=== PATIENT | male | born 1975 | race Caucasian/White ===

== ENCOUNTER 2019-10-09 08:41 | Day surgery (SDC) | payer BC ==
[~2019-10-09 08:41] MED LIST: Bupivacaine 0.5% 50 ML MDV ONE
[2019-10-09] MEDS ORDERED: Nozin Nasal Sanitizer NASBOTH ONE (09:00)
[2019-10-09] MEDS ORDERED: Lactated Ringers 1,000 ML IV SCH (09:00)
[2019-10-09] MEDS ORDERED: ceFAZolin 2 GM in Sodium Chloride 0.9% 50 ML IV ONE (09:00)
[2019-10-09 09:07] VITALS: PULSE 71
[2019-10-09] MEDS ORDERED: Midazolam 1 MG/ML 2 ML SDV ONE ×2 (10:00→10:22)
[2019-10-09] MEDS ORDERED: Propofol 200 MG/20 ML SDV ONE ×2 (10:00→11:10)
[2019-10-09] MEDS ORDERED: fentaNYL 100 MCG/2 ML SDV ONE (10:00)
[2019-10-09] MEDS ORDERED: Lactated Ringers 1,000 ML ONE (10:33)
[2019-10-09 13:22] VITALS: BP 132/77
--- NOTE | 2019-10-17 08:25 | OR ---
DATE OF PROCEDURE: 10/09/2019 SURGEON: Carmelo Gonzalez MD PREOPERATIVE DIAGNOSIS: Anterior impingement syndrome, right ankle, possible loose body. POSTOPERATIVE DIAGNOSES: 1. Anterior impingement syndrome, right ankle. 2. Loose body, right ankle. PROCEDURE PERFORMED: Arthroscopy of right ankle with synovectomy, excision of anterior distal tibial osteophyte and removal of loose body, medial gutter. ANESTHESIA: General. INDICATIONS: Thomas is a 44-year-old gentleman who has been having persistent and increasing difficulty with his right ankle over the past year. Having increasing difficulty maintaining his activity level, particularly with basketball. Intermittent sharp stabbing pain, as well as achy pain with activity. X-ray and MRI reveal osteophytes along the distal tibial anterior lip. Also small osteophyte on the talar neck. There is a questionable loose body in the anterior synovium. He now presents for arthroscopy of the right ankle for debridement of the osteophytes and synovitis as well as removal of loose body if necessary. Risks, benefits, potential complications of the procedure were discussed. PROCEDURE IN DETAIL: After adequate anesthesia was obtained, patient was placed supine with a tourniquet about the right upper thigh. Right leg was prepped and draped in a sterile fashion. Leg was exsanguinated and tourniquet inflated to 300 mmHg. A traction device was secured to the operating table and a foot sling was placed around the heel and dorsum of the midfoot. Slight traction was applied. The ankle was infiltrated with an 18- gauge spinal needle with approximately 15 mL. The anterolateral portal was initially established. The scope was introduced and this showed a fairly significant amount of synovitis along the anterior joint and impinging within the joint. Junction of the distal tibia and fibula showed no significant abnormalities. The lateral gutter was clear. Spinal needle was used to confirm position of the anteromedial portal. Shaver was introduced and synovium was debrided allowing better visualization of the anterior joint. Osteophyte was identified along the entire anterior lip with a small area along the extreme anterior portion which was almost fragmented free. Synovium was cleared from around the edges of the osteophyte and a kacie was then utilized to shave this back to the level of the [place] joint line. Evaluation of the talar dome showed some mild thinning in one aspect without significant loss of articular cartilage. Distal tibial likewise showed no areas of full-thickness cartilage loss. Viewing into the medial gutter, a fragment was identified along the anterior edge of the medial malleolus. This was attached to the soft tissue by a stalk but was otherwise free. This was loosened with a shaver and then removed, first debulking it with a kacie, and then removing the remaining fragment with a grasper. The remainder of the medial gutter was free of loose bodies or other abnormalities. Area along the talar neck was inspected with no obvious abnormalities. Traction was released and showed concentric joint. The foot was taken through range of motion including plantar flexion and extreme dorsiflexion with no evidence of bony impingement. Ankle was drained and scope was withdrawn. Ports were then closed with 3-0 nylon in interrupted fashion and a sterile dressing was applied. The port sites and ankle were infiltrated with 0.25% Marcaine prior to application of the dressing. The patient tolerated procedure very well. There were no complications, taken from the operating room in stable condition. Carmelo Gonzalez MD /[id number] JOE
== END 2019-10-09 14:39 | disposition home or self-care (01) ==
LOC: JP.SDS 08:41
PROVIDERS: ATTEND Specialist
DX: M25.871 Other specified joint disorders, right ankle and foot (principal); I10 Essential (primary) hypertension; K21.9 Gastro-esophageal reflux disease without esophagitis; E11.9 Type 2 diabetes mellitus without complications; E66.01 Morbid (severe) obesity due to excess calories
CPT/HCPCS: 29897; 36415; 80048; 85027; A9270; J0690; J2250; J2704; J3010; J3490; J7050; J7120

== ENCOUNTER 2020-06-20 18:07 | Emergency (ER) | payer BC ==
[2020-06-20 18:42] VITALS: BP 150/108; PULSE 78
--- NOTE | 2020-06-20 19:11 | EDM.PDOC ---
ED HPI GENERAL MEDICAL PROBLEM - General Chief Complaint: Laceration Stated Complaint: HIT IN FACE BY TREE Time Seen by Provider: 06/20/20 19:05 Source of Information: Reports: Patient, Old Records, RN History Limitations: Reports: No Limitations - History of Present Illness INITIAL COMMENTS - FREE TEXT/NARRATIVE: 45 yo male was trying to lift a tree and it broke and ended up hitting him in the eye area. He had no LOC. He transiently had impaired vision which has since normalized. He did incur a laceration of the upper eye lid. He is uncertain about tetanus status. No other concerns today. Onset: Today, Sudden Onset Date: 06/20/20 Duration: Minutes:, Constant Location: Reports: Face Quality: Reports: Dull Severity: Mild Improves with: Reports: None Worsens with: Reports: None Context: Reports: Trauma Associated Symptoms: Reports: No Other Symptoms Treatments RD MANAGER: Reports: Other (see below) (none) Left Eyelid Pain Score (Numeric/FACES): 5 - Related Data Allergies Allergy/AdvReac Type Severity Reaction Status Date / Time No Known Allergies Allergy Verified 06/20/20 18:42 Home Meds: Home Meds Aspirin [Zoey Chewable] 81 mg PO DAILY 09/18/14 [History] Cholecalciferol (Vitamin D3) [Vitamin D3] 5,000 unit PO DAILY 09/18/14 [History] Cyanocobalamin (Vitamin B-12) [Vitamin B-12] 1,000 mcg SL DAILY 09/18/14 [History] Cyclobenzaprine [Flexeril] 10 mg PO TID PRN 09/18/14 [History] Multivitamin [Multi Vitamin Daily] 1 tab PO DAILY 09/18/14 [History] Vitamin B Complex 1 each PO DAILY 09/18/14 [History] amLODIPine Besylate [Norvasc] 2.5 mg PO BID 09/18/14 [History] lisinopriL [Prinivil] 2 tab PO DAILY 09/18/14 [History] Ibuprofen 600 mg PO Q6HR #50 tablet 09/23/14 [Rx] Omeprazole [Prilosec] 40 mg PO DAILY #30 capsule. 09/23/14 [Rx] Chlorthalidone 12.5 mg PO BID 08/08/19 [History] Past Medical History HEENT History: Reports: Impaired Vision Cardiovascular History: Reports: Hypertension Respiratory History: Reports: Sleep Apnea Musculoskeletal History: Reports: Other (See Below) Other Musculoskeletal History: s/p R ankle scope 10/09/19 Endocrine/Metabolic History: Reports: Obesity/BMI 30+ - Infectious Disease History Infectious Disease History: Reports: Chicken Pox, MRSA Other Infectious Disease History: 2009 clear in 2014 - Past Surgical History HEENT Surgical History: Reports: Adenoidectomy, Tonsillectomy GI Surgical History: Reports: Bariatric Procedure Social & Family History - Family History Family Medical History: Noncontributory - Tobacco Use Smoking Status *Q: Never Smoker - Caffeine Use Caffeine Use: Reports: Energy Drinks, Soda - Recreational Drug Use Recreational Drug Use: No ED ROS GENERAL - Review of Systems Review Of Systems: See Below Constitutional: Reports: No Symptoms HEENT: Reports: Vision Change (transiently, now normal), Other (slight edema of the periorbital area on left) Respiratory: Reports: No Symptoms Cardiovascular: Reports: No Symptoms GI/Abdominal: Reports: No Symptoms Musculoskeletal: Denies: Neck Pain Skin: Reports: Wound (upper L eyelid laceration) Neurological: Reports: No Symptoms Psychiatric: Reports: No Symptoms ED EXAM, HEAD INJURY - Physical Exam Exam: See Below Exam Limited By: No Limitations General Appearance: Alert, WD/WN, No Apparent Distress, Obese Head: Normocephalic, Facial Lacerations (upper L eyelid laceration), Facial Swelling (slight puffiness around the left eye), Facial Tenderness (around the L eye). No: Scalp Ecchymosis, Active Bleeding Eyes: Bilateral Eye: EOMI, PERRL Ears: Normal External Exam, Normal Canal, Hearing Grossly Normal Nose: Normal Inspection, No Blood Throat/Mouth: Normal Inspection, Normal Lips, Normal Oropharynx, Normal Voice, No Airway Compromise Neck: Non-Tender, Full Range of Motion, Normal Inspection Respiratory: No Respiratory Distress, Lungs Clear, Normal Breath Sounds, No Accessory Muscle Use Cardiovascular: Regular Rate, Rhythm Extremities: Normal Inspection, Non-Tender Neurologic: script coordinator II-XII nml As Tested, No Motor/Sensory Deficits, Alert, Normal Mood/Affect, Oriented x 3 Skin: Normal Color, Other (0.5 cm L upper eyelid laceration) - Ally Coma Score Best Eye Response (Molino): (4) Open Spontaneously Best Verbal Response (Molino): (5) Oriented Best Motor Response ([place]): (6) Obeys Commands Ally Total: 15 ED LACERATION/WOUND & KISHAN PROC - Laceration/Wound Repair Left Upper Other Lac/wound length in cm: 0.9 (eye lid) Appearance: Subcutaneous, Linear, Clean Distal NVT: Neuro & Vascular Intact, No Tendon Injury Anesthetic Type: Local Local Anesthesia - Lidocaine (Xylocaine): 1% with EPI Local Anesthetic Volume: 2cc Skin Prep: Saline Closed with: Sutures Suture Size: 6-0 # of Sutures: 6 Suture Type: Nylon, Interrupted, Simple Drain Placement: No Sterile Dressing Applied: None Tetanus Status Addressed: Yes Complications: No Course - Vital Signs Last Recorded V/S: Last Vital Signs Temp 36.5 C 06/20/20 18:36 Pulse 78 06/20/20 18:36 Resp 16 06/20/20 18:36 BP 150/108 H 06/20/20 18:36 Pulse Ox 96 06/20/20 18:36 - Orders/Labs/Meds Meds: Medications Discontinued Medications Generic Name Dose Route Start Last Admin Trade Name Myron PRN Reason Stop Dose Admin Bacitracin 1 dose 06/20/20 20:13 06/20/20 20:17 Bacitracin Oint 1 Gm TOP 06/20/20 20:14 1 dose ONETIME ONE Administration Lidocaine/Epinephrine 2 ml 06/20/20 20:12 06/20/20 20:18 Xylocaine 1% With Epinephrine 1:100,000 SUBCUT 06/20/20 20:13 2 ml NOW STA Administration - Radiology Interpretation Free Text/Narrative:: CT facial bones-Impression: 1. No acute facial fracture demonstrated. Please note that the orbital roof and supraorbital frontal bone is not included in the field of view. Further evaluation with CT head is suggested. 2. Advanced dental caries and periodontal disease of the right 1st maxillary molar. Dental follow-up recommended. Please note that all CT scans at this facility use dose modulation, iterative re construction, and/or weight-based dosing when appropriate to reduce radiation dose to as low as reasonably achievable. Dictated by Eugene Campbell MD @ Jun 20 2020 8:23PM CT Results Date: 06/20/20 CT Results Time: 20:30 Departure - Departure Time of Disposition: 20:40 Disposition: Home, Self-Care 01 Condition: Good Clinical Impression: Eyelid laceration, left Qualifiers: Encounter type: initial encounter Qualified Code(s): S01.112A - Laceration without foreign body of left eyelid and periocular area, initial encounter - Discharge Information *PRESCRIPTION DRUG MONITORING PROGRAM REVIEWED*: Not Applicable *COPY OF PRESCRIPTION DRUG MONITORING REPORT IN PATIENT DONNA: Not Applicable Instructions: Laceration Care, Adult, [id number] Referrals: Washington Ashraf MD [Primary Care Provider] - Forms: ED Department Discharge Additional Instructions: Clean wound twice daily with 1/2 water and 1/2 peroxide. Dry. Apply antibiotic ointment. Stitches out in about 6 days. Recheck for signs of infection. Acetaminophen as needed for pain relief. Sepsis Event Note (ED) - Evaluation Sepsis Screening Result: No Definite Risk - Focused Exam Vital Signs: Vital Signs Temp Pulse Resp BP Pulse Ox 06/20/20 18:36 36.5 C 78 16 150/108 H 96
[2020-06-20] MEDS ORDERED: Lidocaine 1% with EPINEPHrine 1:100,000 50 ML MDV SUBCUT STA (20:12)
[2020-06-20] MEDS ORDERED: Bacitracin Oint 1 GM U/D Packet TOP ONE (20:13)
--- NOTE | 2020-06-20 20:32 | CRLCT ---
Indication: Facial injury above left eye Technique: Nonenhanced axial CT images through the face. Sagittal and coronal reconstructions are provided. Comparison: None Findings: The orbital roofs and supraorbital frontal region is not included in field of view. No acute facial fracture is demonstrated. There is no significant facial swelling. The included orbits are unremarkable. The visualized paranasal sinuses and mastoid air cells are aerated. The visualized skullbase is intact. There is marked erosion of the right 1st maxillary molar with periapical lucency, consistent with advanced dental caries and periodontal disease. Impression: 1. No acute facial fracture demonstrated. Please note that the orbital roof and supraorbital frontal bone is not included in the field of view. Further evaluation with CT head is suggested. 2. Advanced dental caries and periodontal disease of the right 1st maxillary molar. Dental follow-up recommended. Please note that all CT scans at this facility use dose modulation, iterative reconstruction, and/or weight-based dosing when appropriate to reduce radiation dose to as low as reasonably achievable. Dictated by Eugene Campbell MD @ Jun 20 2020 8:23PM Signed by Dr. Eugene Campbell @ Jun 20 2020 8:31PM
== END 2020-06-20 20:52 | disposition home or self-care (01) ==
LOC: JP.ED 18:07
DX: S01.112A Laceration without foreign body of left eyelid and periocular area, initial encounter (principal); I10 Essential (primary) hypertension; E66.9 Obesity, unspecified; Z68.42 Body mass index [BMI] 45.0-49.9, adult; Z79.82 Long term (current) use of aspirin; Z79.899 Other long term (current) drug therapy; Z90.89 Acquired absence of other organs; W22.8XXA Striking against or struck by other objects, initial encounter
CPT/HCPCS: 12011; 70486; 99283-25

== ENCOUNTER 2021-05-29 19:56 | Inpatient (IN) | payer BC ==
[2021-05-29] MEDS ORDERED: Sodium Chloride 0.9% 10 ML Syringe FLUSH PRN (20:35)
[2021-05-29] MEDS ORDERED: fentaNYL 100 MCG/2 ML SDV IVPUSH ONE (20:37)
[2021-05-29] MEDS ORDERED: Ondansetron 4 MG/2 ML SDV IVPUSH ONE (20:37)
--- NOTE | 2021-05-29 20:38 | EDM.PDOC ---
ED HPI GENERAL MEDICAL PROBLEM - General Chief Complaint: Abdominal Pain Stated Complaint: STOMACH PAIN, WOKRING ITS WAY TO THE BACK Time Seen by Provider: 05/29/21 20:31 Source of Information: Reports: Patient, Family, RN Notes Reviewed History Limitations: Reports: No Limitations - History of Present Illness INITIAL COMMENTS - FREE TEXT/NARRATIVE: 46-year-old gentleman presents emergency department day complaint of epigastric pain, he has known history of gastric bypass he stated the pain started almost immediately after he finished eating portion of a cheeseburger. States the pain comes in waves will get nauseated does get quite intense no shortness of breath it is predominantly in the epigastric region no other symptoms - Related Data Allergies Allergy/AdvReac Type Severity Reaction Status Date / Time No Known Allergies Allergy Verified 06/20/20 18:42 Home Meds: Home Meds Aspirin [Zoey Chewable] 81 mg PO DAILY 09/18/14 [History] Cyanocobalamin (Vitamin B-12) [Vitamin B-12] 1,000 mcg SL DAILY 09/18/14 [History] Cyclobenzaprine [Flexeril] 10 mg PO TID PRN 09/18/14 [History] Multivitamin [Multi Vitamin Daily] 1 tab PO DAILY 09/18/14 [History] Vitamin B Complex 1 each PO DAILY 09/18/14 [History] amLODIPine Besylate [Norvasc] 2.5 mg PO BID 09/18/14 [History] lisinopriL [Prinivil] 2 tab PO DAILY 09/18/14 [History] Ibuprofen 600 mg PO Q6HR #50 tablet 09/23/14 [Rx] Omeprazole [Prilosec] 40 mg PO DAILY #30 capsule.dr 09/23/14 [Rx] Chlorthalidone 12.5 mg PO BID 08/08/19 [History] Past Medical History HEENT History: Reports: Impaired Vision Cardiovascular History: Reports: Hypertension Respiratory History: Reports: Sleep Apnea Musculoskeletal History: Reports: Other (See Below) Other Musculoskeletal History: s/p R ankle scope 10/09/19 Endocrine/Metabolic History: Reports: Obesity/BMI 30+ - Infectious Disease History Infectious Disease History: Reports: Chicken Pox, MRSA Other Infectious Disease History: 2009 clear in 2014 - Past Surgical History HEENT Surgical History: Reports: Adenoidectomy, Tonsillectomy GI Surgical History: Reports: Bariatric Procedure Social & Family History - Family History Family Medical History: No Pertinent Family History - Tobacco Use Tobacco Use Status *Q: Never Tobacco User Second Hand Smoke Exposure: No - Caffeine Use Caffeine Use: Reports: Energy Drinks - Alcohol Use Days Per Week of Alcohol Use: 1 Number of Drinks Per Day: 2 Total Drinks Per Week: 2 - Recreational Drug Use Recreational Drug Use: No ED ROS GENERAL - Review of Systems Review Of Systems: See Below Constitutional: Reports: No Symptoms Respiratory: Reports: No Symptoms Cardiovascular: Reports: No Symptoms GI/Abdominal: Reports: Abdominal Pain, Nausea, Vomiting ED EXAM, GI/ABD - Physical Exam Exam: See Below Exam Limited By: No Limitations General Appearance: Alert, Mild Distress Respiratory/Chest: No Respiratory Distress, Lungs Clear, Normal Breath Sounds, No Accessory Muscle Use, Chest Non-Tender Cardiovascular: Regular Rate, Rhythm, No Murmur GI/Abdominal Exam: Normal Bowel Sounds, Soft, No Distention, Tender (Epigastric region) Course - Orders/Labs/Meds Orders: Active Orders 24 hr Category Date Time Status Peripheral IV Care [RC] . DIRECTED Care 05/29/21 20:36 Active Iopamidol [Isovue-300 (61%)] Med 05/29/21 21:30 Active 150 ml IV . DIRECTED PRN Lactated Ringers [Ringers, Lactated] 1,000 ml Med 05/29/21 20:45 Active IV ASDIRECTED Sodium Chloride 0.9% [Normal Saline] 70 ml Med 05/29/21 21:30 Active IV ASDIRECTED Sodium Chloride 0.9% [Saline Flush] Med 05/29/21 20:35 Active 10 ml FLUSH ASDIRECTED PRN Peripheral IV Insertion Adult [OM.PC] Urgent Oth 05/29/21 20:35 Ordered Medication Orders Lactated Ringer's (Ringers, Lactated) 1,000 mls @ 500 mls/hr IV ASDIRECTED [facility] Last Admin: 05/29/21 21:18 Dose: 500 mls/hr Documented by: EDUARDO Sodium Chloride (Normal Saline) 70 mls @ 3.5 mls/sec IV ASDIRECTED KIMBERLY Last Admin: 05/29/21 21:34 Dose: 3.5 mls/sec Documented by: DARLIN Iopamidol (Iopamidol 612 Mg/Ml 150 Ml Bottle) 150 ml IV . DIRECTED PRN PRN Reason: RADIOLOGY EXAM Stop: 05/30/21 21:31 Last Admin: 05/29/21 21:34 Dose: 150 ml Documented by: DARLIN Sodium Chloride (Sodium Chloride 0.9% 10 Ml Syringe) 10 ml FLUSH ASDIRECTED PRN PRN Reason: Keep Vein Open Last Admin: 05/29/21 21:33 Dose: 10 ml Documented by: DARLIN Labs: Laboratory Tests 05/29/21 05/29/21 05/29/21 Range/Units 20:48 20:48 20:48 WBC 9.1 (4.5-11.0) K/uL RBC 5.79 (4.30-5.90) M/uL Hgb 16.3 H (12.0-15.0) g/dL Hct 46.9 (40.0-54.0) % MCV 81 (80-98) fL MCH 28 (27-31) pg MCHC 35 (32-36) % Plt Count 281 (150-400) K/uL Neut % (Auto) 69.5 H (36-66) % Lymph % (Auto) 16.5 L (24-44) % [place] % (Auto) 8.2 H (2-6) % Eos % (Auto) 5.0 H (2-4) % Baso % (Auto) 0.8 (0-1) % Sodium 146 (140-148) mmol/L Potassium 3.6 (3.6-5.2) mmol/L Chloride 104 (100-108) mmol/L Carbon Dioxide 29 (21-32) mmol/L Anion Gap 13.1 (5.0-14.0) mmol/L BUN 14 (7-18) mg/dL Creatinine 1.4 H (0.8-1.3) mg/dL Est Cr Clr Drug Dosing TNP Estimated GFR (MDRD) 55 L (>60) Glucose 136 H (74-106) mg/dL Lactic Acid 1.5 (0.4-2.0) mmol/L Calcium 8.7 (8.5-10.1) mg/dL Total Bilirubin 0.4 (0.2-1.0) mg/dL AST 19 (15-37) U/L ALT 50 (12-78) U/L Alkaline Phosphatase 89 (46-116) U/L Troponin I < 0.017 (0.000-0.056) ng/mL Total Protein 7.6 (6.4-8.2) g/dL Albumin 3.9 (3.4-5.0) g/dL Globulin 3.7 H (2.3-3.5) g/dL Albumin/Globulin Ratio 1.1 L (1.2-2.2) Lipase 588 H (73-393) U/L Urine Color (YELLOW) Urine Appearance (CLEAR) Urine pH (5.0-8.0) Ur Specific [place] (1.008-1.030) Urine Protein (NEGATIVE) mg/dL Urine Glucose (UA) (NEGATIVE) mg/dL Urine Ketones (NEGATIVE) mg/dL Urine Occult Blood (NEGATIVE) Urine Nitrite (NEGATIVE) Urine Bilirubin (NEGATIVE) Urine Urobilinogen (0.2-1.0) EU/dL Ur Leukocyte Esterase (NEGATIVE) Urine RBC (0-5) Urine WBC (0-5) Ur Epithelial Cells Amorphous Sediment Urine Bacteria Urine Mucus 05/29/21 Range/Units 21:48 WBC (4.5-11.0) K/uL RBC (4.30-5.90) M/uL Hgb (12.0-15.0) g/dL Hct (40.0-54.0) % MCV (80-98) fL MCH (27-31) pg MCHC (32-36) % Plt Count (150-400) K/uL Neut % (Auto) (36-66) % Lymph % (Auto) (24-44) % [place] % (Auto) (2-6) % Eos % (Auto) (2-4) % Baso % (Auto) (0-1) % Sodium (140-148) mmol/L Potassium (3.6-5.2) mmol/L Chloride (100-108) mmol/L Carbon Dioxide (21-32) mmol/L Anion Gap (5.0-14.0) mmol/L BUN (7-18) mg/dL Creatinine (0.8-1.3) mg/dL Est Cr Clr Drug Dosing Estimated GFR (MDRD) (>60) Glucose (74-106) mg/dL Lactic Acid (0.4-2.0) mmol/L Calcium (8.5-10.1) mg/dL Total Bilirubin (0.2-1.0) mg/dL AST (15-37) U/L ALT (12-78) U/L Alkaline Phosphatase (46-116) U/L Troponin I (0.000-0.056) ng/mL Total Protein (6.4-8.2) g/dL Albumin (3.4-5.0) g/dL Globulin (2.3-3.5) g/dL Albumin/Globulin Ratio (1.2-2.2) Lipase (73-393) U/L Urine Color Yellow (YELLOW) Urine Appearance Clear (CLEAR) Urine pH 6.5 (5.0-8.0) Ur Specific [place] 1.025 (1.008-1.030) Urine Protein 30 H (NEGATIVE) mg/dL Urine Glucose (UA) Negative (NEGATIVE) mg/dL Urine Ketones Negative (NEGATIVE) mg/dL Urine Occult Blood Trace-lysed H (NEGATIVE) Urine Nitrite Negative (NEGATIVE) Urine Bilirubin Negative (NEGATIVE) Urine Urobilinogen 0.2 (0.2-1.0) EU/dL Ur Leukocyte Esterase Negative (NEGATIVE) Urine RBC 0-5 (0-5) Urine WBC 0-5 (0-5) Ur Epithelial Cells Few Amorphous Sediment Rare Urine Bacteria Rare Urine Mucus Occasional Meds: Medications Generic Name Dose Route Start Last Admin Trade Name Freq PRN Reason Stop Dose Admin Lactated Ringer's 1,000 mls @ 500 mls/hr 05/29/21 20:45 05/29/21 21:18 Ringers, Lactated IV 500 mls/hr ASDIRECTED KIMBERLY Administration Sodium Chloride 70 mls @ 3.5 mls/sec 05/29/21 21:30 05/29/21 21:34 Normal Saline IV 3.5 mls/sec ASDIRECTED KIMBERLY Administration Iopamidol 150 ml 05/29/21 21:30 05/29/21 21:34 Iopamidol 612 Mg/Ml 150 Ml Bottle IV 05/30/21 21:31 150 ml . DIRECTED PRN Administration RADIOLOGY EXAM Sodium Chloride 10 ml 05/29/21 20:35 05/29/21 21:33 Sodium Chloride 0.9% 10 Ml Syringe FLUSH 10 ml ASDIRECTED PRN Administration Keep Vein Open Discontinued Medications Generic Name Dose Route Start Last Admin Trade Name Freq PRN Reason Stop Dose Admin Amlodipine Besylate 5 mg 05/29/21 23:19 Amlodipine 5 Mg Tab PO 05/29/21 23:20 ONETIME ONE Fentanyl 50 mcg 05/29/21 20:37 05/29/21 21:18 Fentanyl 100 Mcg/2 Ml Sdv IVPUSH 05/29/21 20:38 50 mcg ONETIME ONE Administration Hydromorphone HCl 1 mg 05/29/21 21:38 05/29/21 21:45 Hydromorphone 1 Mg/Ml Syringe IVPUSH 05/29/21 21:39 1 mg ONETIME ONE Administration Hydromorphone HCl 1 mg 05/29/21 22:58 05/29/21 23:07 Hydromorphone 1 Mg/Ml Syringe IVPUSH 05/29/21 22:59 1 mg ONETIME ONE Administration Ondansetron HCl 4 mg 05/29/21 20:37 05/29/21 21:18 Ondansetron 4 Mg/2 Ml Sdv IVPUSH 05/29/21 20:38 4 mg ONETIME ONE Administration Sodium Chloride 10 ml 05/29/21 21:30 05/29/21 23:07 Sodium Chloride 0.9% 10 Ml Syringe FLUSH 05/29/21 21:31 10 ml ONETIME ONE Administration Departure - Departure Time of Disposition: 23:24 Disposition: Admitted As Inpatient 67 Condition: Fair Clinical Impression: Abdominal pain Qualifiers: Abdominal location: epigastric Qualified Code(s): R10.13 - Epigastric pain - Discharge Information Referrals: Washington Ashraf MD [Primary Care Provider] - Forms: ED Department Discharge - My Orders Last 24 Hours: My Active Orders 05/29/21 20:35 Sodium Chloride 0.9% [Saline Flush] 10 ml FLUSH ASDIRECTED PRN Peripheral IV Insertion Adult [OM.PC] Urgent 05/29/21 20:36 Peripheral IV Care [RC] . DIRECTED 05/29/21 20:45 Lactated Ringers [Ringers, Lactated] 1,000 ml IV ASDIRECTED 05/29/21 21:30 Iopamidol [Isovue-300 (61%)] 150 ml IV . DIRECTED PRN Sodium Chloride 0.9% [Normal Saline] 70 ml IV ASDIRECTED - Assessment/Plan Last 24 Hours: My Active Orders 05/29/21 20:35 Sodium Chloride 0.9% [Saline Flush] 10 ml FLUSH ASDIRECTED PRN Peripheral IV Insertion Adult [OM.PC] Urgent 05/29/21 20:36 Peripheral IV Care [RC] . DIRECTED 05/29/21 20:45 Lactated Ringers [Ringers, Lactated] 1,000 ml IV ASDIRECTED 05/29/21 21:30 Iopamidol [Isovue-300 (61%)] 150 ml IV . DIRECTED PRN Sodium Chloride 0.9% [Normal Saline] 70 ml IV ASDIRECTED Plan: Assessment Acuity = acute Site and laterality = epigastric abdominal pain Etiology = probably cholecystitis Manifestations = none Location of injury = Home Lab values = CBC unremarkable creatinine elevated 1.4 consistent with acute renal failure stage G3 a lipase slightly elevated at [address] scan of the abdomen shows distended gallbladder with layering density in the lumen probably high density sludge status post sleeve gastric without evidence of obstruction Plan Call discussed case with Dr. Villa at [phone] kindly agreed to come evaluate the patient in the hospital plan for surgical intervention in the morning This note was dictated using [employer] voice recognition software please call with any questions on syntax or grammar.
[2021-05-29] MEDS ORDERED: Lactated Ringers 1,000 ML IV SCH (20:45)
[2021-05-29] MEDS ORDERED: Sodium Chloride 0.9% 10 ML Syringe FLUSH ONE (21:30)
[2021-05-29] MEDS ORDERED: Iopamidol 612 MG/ML 150 ML Bottle IV PRN (21:30)
[2021-05-29] MEDS ORDERED: HYDROmorphone 1 MG/ML Syringe IVPUSH ONE ×2 (21:38→22:58)
--- NOTE | 2021-05-29 22:11 | CRLCT ---
For Patients: As a result of the Century Cures Act, medical imaging exams and procedure reports are released immediately into your electronic medical record. You may view this report before your referring provider. If you have questions, please contact your health care provider. INDICATION: Epigastric pain TECHNIQUE: Axial images were obtained from the diaphragm to the pubic symphysis. Reformats were obtained in the coronal and sagittal plane. IV Contrast: 150 cc Isovue 300 Oral Contrast: None COMPARISON: None. FINDINGS: Lower chest: Unremarkable. Liver: Unremarkable. Normal in size and attenuation. No masses. Gallbladder and bile ducts: Distended gallbladder with some layering density in the lumen. Common duct normal in caliber. Spleen: Unremarkable. Normal in size without mass. Pancreas: Unremarkable. No mass or inflammation. Adrenal glands: Unremarkable. No nodules. Kidneys: Symmetric renal enhancement without hydronephrosis. Right renal cyst of the lower pole measuring 5.2 centimeters. Vasculature: Atherosclerosis without abdominal aortic aneurysm. Subcentimeter retroperitoneal lymph nodes. GI tract: Suture line along the greater curve of the stomach, likely part of a gastric sleeve. No dilated loops of large or small intestine. Appendix unremarkable. Pelvis: Unremarkable. Bones: Mild bilateral hip osteoarthritis. Degenerative disc disease lumbar spine. IMPRESSION: 1. Distended gallbladder with some layering density in the lumen, probably high-density sludge. Right upper quadrant ultrasound may be helpful in further characterization to assess for noncalcified stones. 2. Status post gastric sleeve without evidence for obstruction. Please note that all CT scans at this facility use dose modulation, iterative reconstruction, and/or weight-based dosing when appropriate to reduce radiation dose to as low as reasonably achievable. Dictated by Ronny Hooper MD @ 05/29/2021 10:10:[address] Ronny Hooper @ May 29 2021 10:10PM
[2021-05-29] MEDS ORDERED: amLODIPine 5 MG Tab PO ONE (23:19)
[2021-05-29] MEDS ORDERED: Ondansetron 4 MG/2 ML SDV IVPUSH PRN (23:28)
[2021-05-29] MEDS ORDERED: Naloxone 0.4 MG/ML SDV IVPUSH PRN (23:28)
[2021-05-29] MEDS ORDERED: diphenhydrAMINE 25 MG Cap PO PRN (23:28)
[2021-05-29] MEDS ORDERED: diphenhydrAMINE 50 MG/ML SDV IVPUSH PRN (23:28)
[2021-05-29] MEDS ORDERED: fentaNYL/Normal Saline 600 MCG/30 ML PCA Vial IV SCH (23:30)
[2021-05-29] MEDS ORDERED: Cyclobenzaprine 10 MG Tab PO PRN (23:30)
[2021-05-29] MEDS: Lactated Ringers 1,000 ML IV SCH (23:47)
[2021-05-30] MEDS ORDERED: Ondansetron 4 MG/2 ML SDV IVPUSH PRN ×2 (00:30→17:30)
[2021-05-30] MEDS ORDERED: Naloxone 0.4 MG/ML SDV IVPUSH PRN (00:30)
[2021-05-30] MEDS ORDERED: diphenhydrAMINE 50 MG/ML SDV IVPUSH PRN (00:30)
[2021-05-30] MEDS ORDERED: HYDROmorphone/Normal Saline 15 MG/30 ML PCA IV SCH (00:30)
[2021-05-30] MEDS ORDERED: diphenhydrAMINE 25 MG Cap PO PRN (00:30)
[2021-05-30] MEDS: Ampicillin/Sulbactam Na 1.5 GM in Sodium Chloride 0.9% 50 ML IV SCH ×3 (01:05→11:26)
[2021-05-30] MEDS ORDERED: Pantoprazole 40 MG Tab.CR PO SCH (07:30)
[2021-05-30] MEDS: Lisinopril 20 MG Tab PO SCH ×3 (08:26→21:16)
[2021-05-30] MEDS: Chlorthalidone 25 MG Tab PO SCH ×2 (08:29→21:15)
[2021-05-30] MEDS: amLODIPine 5 MG Tab PO SCH ×2 (08:30→21:15)
[2021-05-30] MEDS ORDERED: Multivitamins with Iron/Calcium/Folic Acid/Minerals Tab PO SCH (09:00)
[2021-05-30] MEDS ORDERED: Vitamin B Complex Tab PO SCH (09:00)
[2021-05-30] MEDS ORDERED: Cyanocobalamin (Vitamin B12) 1,000 MCG Tab PO SCH (09:00)
[2021-05-30] MEDS ORDERED: Glycopyrrolate 0.2 MG/ML 5 ML MDV ONE (10:52)
[2021-05-30] MEDS ORDERED: Propofol 200 MG/20 ML SDV ONE (10:52)
[2021-05-30] MEDS ORDERED: Neostigmine Methylsulfate 1 MG/ML 5 ML Syringe ONE (10:52)
[2021-05-30] MEDS ORDERED: Dexamethasone 4 MG/ML SDV ONE (10:52)
[2021-05-30] MEDS ORDERED: Succinylcholine 200 MG/10 ML MDV ONE (10:52)
[2021-05-30] MEDS ORDERED: fentaNYL 250 MCG/5 ML SDV ONE ×2 (10:52→13:53)
[2021-05-30] MEDS ORDERED: Ondansetron 4 MG/2 ML SDV ONE (10:52)
[2021-05-30] MEDS ORDERED: Rocuronium 50 MG/5 ML Vial ONE ×2 (10:52→14:42)
[2021-05-30] MEDS: Lactated Ringers 1,000 ML IV SCH (11:28)
[2021-05-30] MEDS ORDERED: Bupivacaine 0.5%/EPINEPHrine 1:200,000 50 ML MDV ONE (13:08)
[2021-05-30] MEDS ORDERED: Lactated Ringers 1,000 ML ONE (14:08)
[2021-05-30] MEDS ORDERED: Sugammadex Sodium 200 MG/2 ML VIAL ONE (15:47)
[2021-05-30] MEDS: Ampicillin/Sulbactam Na 3 GM in Sodium Chloride 0.9% 100 ML IV SCH (17:35)
[2021-05-30] MEDS: Dextrose 5%-Lactated Ringers 1,000 ML IV SCH (17:35)
[2021-05-30] MEDS: Acetaminophen 500 MG Tab PO SCH (17:40)
[2021-05-30] MEDS ORDERED: Pantoprazole 40 MG Vial IVPUSH SCH (18:00)
[2021-05-30] MEDS: Ibuprofen 600 MG Tab PO SCH (19:47)
[2021-05-30] MEDS: oxyCODONE 5 MG Tab PO PRN (21:16)
[2021-05-30] MEDS ORDERED: Enoxaparin 60 MG/0.6 ML Syringe SUBCUT SCH (22:00)
[2021-05-31] MEDS: Ampicillin/Sulbactam Na 3 GM in Sodium Chloride 0.9% 100 ML IV SCH ×2 (00:05→05:46)
[2021-05-31] MEDS: Acetaminophen 500 MG Tab PO SCH ×2 (00:06→05:45)
[2021-05-31] MEDS: Ibuprofen 600 MG Tab PO SCH ×2 (02:11→08:06)
[2021-05-31] MEDS: Dextrose 5%-Lactated Ringers 1,000 ML IV SCH (02:13)
[2021-05-31] MEDS: Chlorthalidone 25 MG Tab PO SCH (08:07)
[2021-05-31] MEDS: oxyCODONE 5 MG Tab PO PRN (08:07)
[2021-05-31] MEDS: Lisinopril 20 MG Tab PO SCH (08:08)
[2021-05-31] MEDS: amLODIPine 5 MG Tab PO SCH (08:08)
[2021-05-31 08:09] VITALS: BP 177/105
[2021-05-31 08:54] VITALS: PULSE 72
--- NOTE | 2021-06-02 13:16 | DISCH ---
FINAL DIAGNOSES: 1. Acute gangrenous cholecystitis with pericholecystic abscess. 2. Bariatric surgery status. 3. Continued morbid obesity with some improvement status post sleeve gastrectomy. 4. History of hypertension. OPERATIVE PROCEDURE: Done on 05/30, diagnostic laparoscopy with: 1. Cholecystectomy. 2. Drainage of pericholecystic abscess. SUMMARY: This is a 46-year-old presenting with a picture of acute cholecystitis at initial hospitalization, hydration and antibiotics. The patient underwent a diagnostic laparoscopy, had a gangrenous appearing gallbladder with pericholecystic abscess. Abscess fluid was present posterior to the gallbladder and also between the gallbladder neck and body and the liver. This entire plane of tissue in that region was also necrotic. Gallbladder was eventually removed and it was noted to have multitude of BB-sized stones. Postoperatively, the patient has done well. He is tolerating a combination of ibuprofen, Tylenol, and oxycodone. His labs looked good this morning with no abnormalities in liver function tests and LIDIA drainage nonbilious. He will be discharged home. Follow up will be with Dr. Villa on 06/11/2021 in [facility]. MEDICATIONS ON DISCHARGE: Will include his home medications plus oxycodone 5 mg p.o. q.6 hours p.r.n. pain #12, Tylenol and ibuprofen on a p.r.n. basis, and Augmentin 875 mg p.o. b.i.d. x5 days. The cultures of the abscess fluid at this point are still pending, but Augmentin will likely cover that set of organisms fairly well. /[id number]
--- NOTE | 2021-06-10 13:14 | OR ---
DATE OF PROCEDURE: 05/30/2021 SURGEON: Jeremy Villa MD PREOPERATIVE DIAGNOSIS: Acute cholecystitis. POSTOPERATIVE DIAGNOSIS: Acute gangrenous cholecystitis with pericholecystic abscess. OPERATIVE PROCEDURES: Diagnostic laparoscopy with: 1. Cholecystectomy (49769). 2. Drainage of pericholecystic abscess (79315). ANESTHESIA: General. INDICATIONS FOR PROCEDURE: This is a 46-year-old presenting with picture of acute cholecystitis. Plan is to proceed with diagnostic laparoscopy or laparotomy if necessary along with a cholecystectomy. Potential risks of the procedure including bleeding, infection, injury to common bile duct, possible migration of stones in the common bile duct requiring additional procedures for correction were all reviewed, and the patient wishes to proceed. PROCEDURE IN DETAIL: The patient was taken to the operating room. After general endotracheal anesthesia was induced, the abdomen was prepped and draped. Because of the marked fullness in the right upper quadrant, a transverse incision was made slightly below the level of the umbilicus and slightly to the right of the midline. This was carried down through the skin and subcutaneous tissue and the peritoneal cavity entered with an Optiview trocar, inflated to 15 mmHg pressure with CO2. Bilateral transversus abdominis plane blocks were then placed and eventually 4 additional trocars were placed across the epigastrium and right subcostal area. Gallbladder was noted to be acutely gangrenous, and upon evaluation, there was purulent collection of fluid behind the gallbladder. This abscess was evacuated and cultures were obtained. The gallbladder was then decompressed in order to allow more adequate manipulation of the gallbladder. Dissection then began on the gallbladder neck and continued around the gallbladder neck and cystic duct junction. Once that area was well delineated along with the adjacent cystic artery, both structures were taken with MODE maverick and the gallbladder was then dissected off the gallbladder bed using electrocautery and Harmonic Scalpel. The gallbladder was delivered through the epigastric site. We needed to enlarge somewhat both the skin and fascia level in order to evacuate the gallbladder and its contents. At this point, a Israel-Reese drain was placed adjacent to the lateral subcostal trocar site and placed into the gallbladder bed. The trocars were sequentially removed and the peritoneal cavity deflated. The fascia at the epigastric site was closed with 3 sutures of 0 Vicryl stitch and the original camera port was also closed with single stitch of 0 Vicryl at the fascial level. The epigastric site was packed open with iodoform gauze and remaining incision was closed with 4-0 Vicryl stitch. The patient was taken to the recovery room in satisfactory condition. There were no evident complications. Jeremy Villa MD /[id number]
== END 2021-05-31 09:45 | disposition home or self-care (01) | DRG 263 ==
LOC: JP.ED 19:56 → JP.ICU 23:26
PROVIDERS: ADMIT Surgery; ATTEND Surgery
PROC: 0FT44ZZ Resection of Gallbladder, Percutaneous Endoscopic Approach (ICD-10-PCS; principal; 2021-05-30)
PROC: 0F944ZZ Drainage of Gallbladder, Percutaneous Endoscopic Approach (ICD-10-PCS; 2021-05-30)
DX: K81.0 Acute cholecystitis (principal); Z98.84 Bariatric surgery status; E66.01 Morbid (severe) obesity due to excess calories; I10 Essential (primary) hypertension; Z79.82 Long term (current) use of aspirin; Z79.899 Other long term (current) drug therapy; H54.7 Unspecified visual loss; G47.30 Sleep apnea, unspecified; Z86.19 Personal history of other infectious and parasitic diseases; Z90.89 Acquired absence of other organs; Z68.42 Body mass index [BMI] 45.0-49.9, adult; Z20.822 Contact with and (suspected) exposure to COVID-19
CPT/HCPCS: 36415; 74177; 80053; 81001; 82247; 83605; 83690; 83735; 84075; 84484; 85025; 87070; 87075; 87077; 87205; 88304; 94762; 96374; 96375; 96376; 99285-25; A9270-GY; C9113; J0171; J0295; J0330; J1100; J1170; J1650; J2405; J2704; J2710; J2795; J3010; J3490; J7120; J7121; Q9967; U0002

== ENCOUNTER 2021-06-23 15:43 | Emergency (ER) | payer BC ==
[2021-06-23] MEDS ORDERED: HYDROmorphone 1 MG/ML Syringe IVPUSH ONE ×2 (16:46→22:55)
--- NOTE | 2021-06-23 16:49 | EDM.PDOC ---
<Black Fung - Last Filed: 06/23/21 17:18> ED HPI GENERAL MEDICAL PROBLEM - General Chief Complaint: Abdominal Pain Stated Complaint: STOMACH PAIN Time Seen by Provider: 06/23/21 16:35 Source of Information: Reports: Patient, Old Records, RN History Limitations: Reports: No Limitations - History of Present Illness INITIAL COMMENTS - FREE TEXT/NARRATIVE: 46 yo male with a remote hx of gastric bypass and a more recent hx, 3 weeks ago, of a cholecystectomy presents with progressive epigastric pain over the past 3+ days. No fever. Pain seems to wax and wane somewhat. No change in his stool. His urine is dark, like tea. He has no current nausea. Onset: Gradual Onset Date: 06/19/21 Duration: Day(s):, Getting Worse Location: Reports: Abdomen (upper) Quality: Reports: Ache Severity: Moderate Improves with: Reports: Medication (seemed to get relief for awhile with a combination of acetaminophen, Aleve, papaya enzyme, and Flexeril) Worsens with: Reports: Other (unsure) Context: Reports: Other (See HPI) Associated Symptoms: Reports: Nausea/Vomiting (mild nausea, no vomiting). 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: Reports: Other (see below) (took several things together and got partial relief) Upper Abdomen Pain Score (Numeric/FACES): 7 - Related Data Allergies Allergy/AdvReac Type Severity Reaction Status Date / Time No Known Allergies Allergy Verified 06/23/21 16:30 Home Meds: Home Meds Aspirin [Zoey Chewable] 81 mg PO DAILY 09/18/14 [History] Cyanocobalamin (Vitamin B-12) [Vitamin B-12] 1,000 mcg SL DAILY 09/18/14 [History] Cyclobenzaprine [Flexeril] 10 mg PO TID PRN 09/18/14 [History] Multivitamin [Multi Vitamin Daily] 1 tab PO DAILY 09/18/14 [History] Vitamin B Complex 1 each PO DAILY 09/18/14 [History] amLODIPine Besylate [Norvasc] 2.5 mg PO BID 09/18/14 [History] lisinopriL [Prinivil] 20 mg PO BID 09/18/14 [History] Ibuprofen 600 mg PO Q6HR #50 tablet 09/23/14 [Rx] Chlorthalidone 12.5 mg PO BID 08/08/19 [History] Past Medical History HEENT History: Reports: Impaired Vision Cardiovascular History: Reports: Hypertension Respiratory History: Reports: Sleep Apnea Musculoskeletal History: Reports: Other (See Below) Other Musculoskeletal History: s/p R ankle scope 10/09/19 Endocrine/Metabolic History: Reports: Obesity/BMI 30+ - Infectious Disease History Infectious Disease History: Reports: Chicken Pox, MRSA Other Infectious Disease History: 2009 clear in 2014 - Past Surgical History HEENT Surgical History: Reports: Adenoidectomy, Tonsillectomy GI Surgical History: Reports: Bariatric Procedure Social & Family History - Family History Family Medical History: No Pertinent Family History - Tobacco Use Tobacco Use Status *Q: Never Tobacco User - Caffeine Use Caffeine Use: Reports: Soda - Recreational Drug Use Recreational Drug Use: No ED ROS GENERAL - Review of Systems Review Of Systems: See Below Constitutional: Reports: No Symptoms HEENT: Reports: No Symptoms Respiratory: Reports: Other (deep breathing increases his abdominal pain) Cardiovascular: Reports: No Symptoms Endocrine: Reports: No Symptoms GI/Abdominal: Reports: Abdominal Pain, Nausea. Denies: Black Stool, Bloody Stool, Constipation, Diarrhea, Distension, Hematochezia, Melena, Vomiting : Reports: Other (dark urine) Musculoskeletal: Reports: No Symptoms Skin: Reports: No Symptoms Neurological: Reports: No Symptoms ED EXAM, GI/ABD - Physical Exam Exam: See Below Exam Limited By: No Limitations General Appearance: Alert, WD/WN, No Apparent Distress, Obese Eyes: Bilateral: Normal Appearance Ears: Normal External Exam, Normal Canal, Hearing Grossly Normal Nose: Normal Inspection, No Blood Throat/Mouth: Normal Inspection, Normal Lips, Normal Voice, No Airway Compromise Head: Atraumatic, Normocephalic Neck: Normal Inspection Respiratory/Chest: No Respiratory Distress, Lungs Clear, Normal Breath Sounds, No Accessory Muscle Use Cardiovascular: Regular Rate, Rhythm, No Edema GI/Abdominal Exam: Normal Bowel Sounds, Soft, Guarding, Rebound, Tender (tender epigastrium), Other (well healed laparoscopic surgical wounds). No: Non-Tender, No Distention, Distended, Rigid Back Exam: Normal Inspection Neurological: Alert, Oriented, CN II-XII Intact, Normal Cognition, No Motor/Sensory Deficits Psychiatric: Normal Affect, Normal Mood Skin Exam: Warm, Dry, Intact, Normal Color, No Rash Course - Radiology Interpretation Free Text/Narrative:: CT abd/pelvis with IV contrast- Departure - Departure Disposition: DC/Tfer to Acute Hospital 02 Clinical Impression: Acute pancreatitis, Elevated LFTs, H/O gastric bypass, History of cholecystectomy, Lab test negative for COVID-19 virus - Discharge Information Referrals: Washington Ashraf MD [Primary Care Provider] - Forms: ED Department Discharge <Keith Schaffer - Last Filed: 06/24/21 06:25> Course - Vital Signs Text/Narrative:: 1800 :Care was signed out to me at physician change of shift by Dr. Jeovany Fung. At signout it was noted to me that patient LFTs were elevated. I reviewed the patient's CMP which was a bilirubin of 9.6. AST of 200 ALT of 422. Patient's lipase is also marked elevated at 10,941. I was asked to follow-up the results of his CT scan and coordinate likely transfer for concerns of postsurgical cholecystitis and concerns of retained ductal stone clinically. patient would benefit for GI MD for consideration of ERCP or MRCP. Patient received IV fluids and a Covid screen was sent prior to my assuming care of the patient. No covid symptoms noted by Dr. Fung. 184: Patient reassessed. Patient notes ongoing epigastric pain which is somewhat worse since I assumed care of the patient. He is Requested additional pain medications. He Responded nicely to the initial dose of IV Dilaudid. Patient has received 1 L lactated Ringer's and laboratory studies show him to be hemoconcentrated. Patient was placed n.p.o. 0.9% normal saline liters ordered as a bolus over 2 hours and I discussed the need for patient transfer to higher level of care with patient. HE will need GI MD/specialist for acute pancreati tis and concerns of retained ductal stone status post ERCP 3 weeks ago. This hospital does not have a GI capacity to care for the patient and he will require intervention possible ERCP. Patient's primary care is received through [facility]. Closest hospital with capacity is being contacted. Patient has no Covid symptoms and Covid screen is pending. 1904: [facility] contacted by myself for transfer. They will call back. patient preference is [facility]. 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 1937: norvasc 2.5 mg po, home med ordered routine. may have ice chip with bp med. 1940: I called [facility] for update re: transfer for higher level of care not available here. they note no beds until "tomorrow morning". patient added to wait list 1943: CT fax results: abd/pelvis: 1: peripancreatic inflammatory change. normal enhancement of the pancreas findings most likely reflect interstitial edematous pancreatitis. 2: fatty liver per Dr. Mounika Canales, radiologist. 1954: Dr. Abraham, surgery battery charger conveyor line contacted. he recommends transfer due to no MRCP, ERCP or GI at this hospital 1999: [facility] contacted, re: capacity for transfer, beds and GI availability Dr. Rose accepts, however per one call, no med beds at correct campus until tomorrow morning. patient added to wait list. faxed face sheet to [phone] 2013: patient updated. His next choices for transfer are [facility], in that order. 2014: [facility] contacted for transfer, [place] [facility]. We will get call back in ~ 3 hours. No current capacity 2019: [facility] stat doc contacted. On divert no beds. no beds until tomorrow 2019: lisinopril home dose ordered. 2043: [facility] contacted. no beds in [place] 2109: patient updated. he will board in ED, pending bed availability as above. He does not want transfer attempts to other hospitals. 2252: patient notes increased pain, repeat dilaudid ordered. 06/24/2021 Patient has received dilaudid IV prn ~ q 2 hours overnight, which controls pain. 513: [facility] called, patient is #13 on list for admission/transfer. This of note, is patients preferred transfer location. [facility] will call back this am and update Dr. Duckworth Officer, ED AM MD, to which signout will occur at 0700. [facility] aware of reason for transfer: MRCP/ERCP and GI MD not available at this hospital. I began EMTALA Transfer forms, awaiting final accepting MD and bed capacity update. benefit of transfer exceeds risk, stable for transfer to higher level of care. Departure - Departure Preliminary Cause of *Q: Cardiac Arrest Condition: Fair <Gucci Lopez - Last Filed: 06/24/21 14:22> Course - Vital Signs Last Recorded V/S: Last Vital Signs Temp 98.9 F 06/24/21 12:20 Pulse 67 06/24/21 12:20 Resp 16 06/24/21 12:20 BP 134/76 06/24/21 12:20 Pulse Ox 97 06/24/21 12:20 - Orders/Labs/Meds Orders: Active Orders 24 hr Category Date Time Status Communication Order [RC] Per Unit Routine Care 06/24/21 07:52 Active UNBUNDLER Record [RC] Q4H Care 06/24/21 07:52 Active Vital Signs [RC] PER UNIT ROUTINE Care 06/24/21 07:52 Active HYDROmorphone [Dilaudid] Med 06/23/21 18:46 Active 1 mg IVPUSH Q2H PRN HYDROmorphone/Normal Saline [Dilaudid UNBUNDLER 15 MG in NS Med 06/24/21 08:00 Active 30 ML] 15 mg IV ASDIRECTED Lactated Ringers [Ringers, Lactated] 1,000 ml Med 06/23/21 17:15 Active IV ASDIRECTED Naloxone [Narcan] Med 06/24/21 07:51 Active 0.04 mg IVPUSH Q3M PRN Ondansetron [Zofran] Med 06/23/21 23:48 Active 4 mg IVPUSH Q6H PRN Ondansetron [Zofran] Med 06/24/21 07:51 Active 4 mg IVPUSH Q6H PRN Sodium Chloride 0.9% [Normal Saline] 1,000 ml Med 06/23/21 19:00 Active IV ASDIRECTED Sodium Chloride 0.9% [Normal Saline] 1,000 ml Med 06/23/21 20:00 Active IV ASDIRECTED Sodium Chloride 0.9% [Saline Flush] Med 06/23/21 16:38 Active 10 ml FLUSH ASDIRECTED PRN diphenhydrAMINE [Benadryl] Med 06/24/21 07:51 Active 25 mg IVPUSH Q6H PRN diphenhydrAMINE [Benadryl] Med 06/24/21 07:51 Active 25 mg PO Q6H PRN Pulse Oximetry Continuous Monitoring [OM.PC] Routine Oth 06/24/21 07:52 Ordered Saline Lock Insert [OM.PC] Routine Oth 06/23/21 16:38 Ordered Medication Orders Diphenhydramine HCl (Diphenhydramine 50 Mg/Ml Sdv) 25 mg IVPUSH Q6H PRN PRN Reason: Itching Diphenhydramine HCl (Diphenhydramine 25 Mg Cap) 25 mg PO Q6H PRN PRN Reason: Itching Hydromorphone HCl (Hydromorphone 1 Mg/Ml Syringe) 1 mg IVPUSH Q2H PRN PRN Reason: Abdominal Pain Last Admin: 06/24/21 07:45 Dose: 1 mg Documented by: Admin: 06/24/21 05:28 Dose: 1 mg Documented by: Admin: 06/24/21 03:26 Dose: 1 mg Documented by: Admin: 06/24/21 01:06 Dose: 1 mg Documented by: Admin: 06/23/21 22:56 Dose: 1 mg Documented by: Admin: 06/23/21 21:10 Dose: 1 mg Documented by: Admin: 06/23/21 18:57 Dose: 1 mg Documented by: EDUARDO Hydromorphone HCl (Hydromorphone/Normal Saline 15 Mg/30 Ml [employer]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) 15 mg IV ASDIRECTED KIMBERLY; Protocol Last Admin: 06/24/21 08:59 Dose: 15 mg Documented by: ALYSE Lactated Ringer's (Ringers, Lactated) 1,000 mls @ 500 mls/hr IV ASDIRECTED KIMBERLY Last Admin: 06/23/21 17:18 Dose: 500 mls/hr Documented by: LIZZY Sodium Chloride (Normal Saline) 1,000 mls @ 999 mls/hr IV ASDIRECTED KIMBERLY Last Admin: 06/24/21 03:28 Dose: 125 mls/hr Documented by: Infusion: 06/24/21 03:28 Dose: 125 mls/hr Documented by: Admin: 06/23/21 19:51 Dose: 125 mls/hr Documented by: Infusion: 06/23/21 19:51 Dose: 999 mls/hr Documented by: Admin: 06/23/21 18:50 Dose: 999 mls/hr Documented by: EDUARDO Sodium Chloride (Normal Saline) 1,000 mls @ 125 mls/hr IV ASDIRECTED KIMBERLY Naloxone HCl (Naloxone 0.4 Mg/Ml Sdv) 0.04 mg IVPUSH Q3M PRN PRN Reason: Respiratory Depression Ondansetron HCl (Ondansetron 4 Mg/2 Ml Sdv) 4 mg IVPUSH Q6H PRN PRN Reason: Nausea/Vomiting Last Admin: 06/24/21 00:06 Dose: 4 mg Documented by: EDUARDO Ondansetron HCl (Ondansetron 4 Mg/2 Ml Sdv) 4 mg IVPUSH Q6H PRN PRN Reason: Nausea/Vomiting Last Admin: 06/24/21 08:03 Dose: 4 mg Documented by: ALYSE Sodium Chloride (Sodium Chloride 0.9% 10 Ml Syringe) 10 ml FLUSH ASDIRECTED PRN PRN Reason: Keep Vein Open Last Admin: 06/24/21 11:48 Dose: 10 ml Documented by: Admin: 06/23/21 16:59 Dose: 10 ml Documented by: LIZZY Labs: Laboratory Tests 06/23/21 06/23/21 06/23/21 Range/Units 16:37 16:37 16:38 WBC 13.6 H (4.5-11.0) K/uL RBC 6.50 H (4.30-5.90) M/uL Hgb 18.2 H* D (12.0-15.0) g/dL Hct 52.3 (40.0-54.0) % MCV 81 (80-98) fL MCH 28 (27-31) pg MCHC 35 (32-36) % Plt Count 277 (150-400) K/uL Sodium 139 L (140-148) mmol/L Potassium 4.4 (3.6-5.2) mmol/L Chloride 102 (100-108) mmol/L Carbon Dioxide 25 (21-32) mmol/L Anion Gap 16.4 H (5.0-14.0) mmol/L BUN 19 H (7-18) mg/dL Creatinine 1.5 H (0.8-1.3) mg/dL Est Cr Clr Drug Dosing 76.35 mL/min Estimated GFR (MDRD) 51 L (>60) Glucose 152 H (74-106) mg/dL Lactic Acid (0.4-2.0) mmol/L Calcium 9.1 (8.5-10.1) mg/dL Total Bilirubin 9.6 H D (0.2-1.0) mg/dL AST 200 H D (15-37) U/L ALT 422 H (12-78) U/L Alkaline Phosphatase 202 H D (46-116) U/L Lactate Dehydrogenase (85-227) U/L C-Reactive Protein 0.97 H (0.0-0.3) mg/dL Total Protein 7.4 (6.4-8.2) g/dL Albumin 3.8 (3.4-5.0) g/dL Globulin 3.6 H (2.3-3.5) g/dL Albumin/Globulin Ratio 1.1 L (1.2-2.2) Lipase 05817 H (73-393) U/L Urine Color (YELLOW) Urine Appearance (CLEAR) Urine pH (5.0-8.0) Ur Specific [place] (1.008-1.030) Urine Protein (NEGATIVE) mg/dL Urine Glucose (UA) (NEGATIVE) mg/dL Urine Ketones (NEGATIVE) mg/dL Urine Occult Blood (NEGATIVE) Urine Nitrite (NEGATIVE) Urine Bilirubin (NEGATIVE) Urine Urobilinogen (0.2-1.0) EU/dL Ur Leukocyte Esterase (NEGATIVE) Urine RBC (0-5) Urine WBC (0-5) Ur Epithelial Cells Amorphous Sediment Urine Bacteria Urine Mucus Urine Other SARS CoV-2 RNA Rapid YESSY 06/23/21 06/23/21 06/24/21 Range/Units 18:36 18:36 09:57 WBC (4.5-11.0) K/uL RBC (4.30-5.90) M/uL Hgb (12.0-15.0) g/dL Hct (40.0-54.0) % MCV (80-98) fL MCH (27-31) pg MCHC (32-36) % Plt Count (150-400) K/uL Sodium (140-148) mmol/L Potassium (3.6-5.2) mmol/L Chloride (100-108) mmol/L Carbon Dioxide (21-32) mmol/L Anion Gap (5.0-14.0) mmol/L BUN (7-18) mg/dL Creatinine (0.8-1.3) mg/dL Est Cr Clr Drug Dosing mL/min Estimated GFR (MDRD) (>60) Glucose (74-106) mg/dL Lactic Acid 0.8 (0.4-2.0) mmol/L Calcium (8.5-10.1) mg/dL Total Bilirubin (0.2-1.0) mg/dL AST (15-37) U/L ALT (12-78) U/L Alkaline Phosphatase (46-116) U/L Lactate Dehydrogenase (85-227) U/L C-Reactive Protein (0.0-0.3) mg/dL Total Protein (6.4-8.2) g/dL Albumin (3.4-5.0) g/dL Globulin (2.3-3.5) g/dL Albumin/Globulin Ratio (1.2-2.2) Lipase (73-393) U/L Urine Color [place] A (YELLOW) Urine Appearance Slightly cloudy A (CLEAR) Urine pH 5.0 (5.0-8.0) Ur Specific [place] 1.020 (1.008-1.030) Urine Protein 100 H (NEGATIVE) mg/dL Urine Glucose (UA) 100 H (NEGATIVE) mg/dL Urine Ketones Trace H (NEGATIVE) mg/dL Urine Occult Blood Negative (NEGATIVE) Urine Nitrite Negative (NEGATIVE) Urine Bilirubin Large H (NEGATIVE) Urine Urobilinogen 2.0 H (0.2-1.0) EU/dL Ur Leukocyte Esterase Negative (NEGATIVE) Urine RBC 0-5 (0-5) Urine WBC 0-5 (0-5) Ur Epithelial Cells Moderate Amorphous Sediment Not seen Urine Bacteria Moderate Urine Mucus Few Urine Other SARS CoV-2 RNA Rapid YESSY Negative 06/24/21 Range/Units 10:18 WBC (4.5-11.0) K/uL RBC (4.30-5.90) M/uL Hgb (12.0-15.0) g/dL Hct (40.0-54.0) % MCV (80-98) fL MCH (27-31) pg MCHC (32-36) % Plt Count (150-400) K/uL Sodium (140-148) mmol/L Potassium (3.6-5.2) mmol/L Chloride (100-108) mmol/L Carbon Dioxide (21-32) mmol/L Anion Gap (5.0-14.0) mmol/L BUN (7-18) mg/dL Creatinine (0.8-1.3) mg/dL Est Cr Clr Drug Dosing mL/min Estimated GFR (MDRD) (>60) Glucose (74-106) mg/dL Lactic Acid (0.4-2.0) mmol/L Calcium (8.5-10.1) mg/dL Total Bilirubin (0.2-1.0) mg/dL AST (15-37) U/L ALT (12-78) U/L Alkaline Phosphatase (46-116) U/L Lactate Dehydrogenase 238 H (85-227) U/L C-Reactive Protein (0.0-0.3) mg/dL Total Protein (6.4-8.2) g/dL Albumin (3.4-5.0) g/dL Globulin (2.3-3.5) g/dL Albumin/Globulin Ratio (1.2-2.2) Lipase (73-393) U/L Urine Color (YELLOW) Urine Appearance (CLEAR) Urine pH (5.0-8.0) Ur Specific [place] (1.008-1.030) Urine Protein (NEGATIVE) mg/dL Urine Glucose (UA) (NEGATIVE) mg/dL Urine Ketones (NEGATIVE) mg/dL Urine Occult Blood (NEGATIVE) Urine Nitrite (NEGATIVE) Urine Bilirubin (NEGATIVE) Urine Urobilinogen (0.2-1.0) EU/dL Ur Leukocyte Esterase (NEGATIVE) Urine RBC (0-5) Urine WBC (0-5) Ur Epithelial Cells Amorphous Sediment Urine Bacteria Urine Mucus Urine Other SARS CoV-2 RNA Rapid YESSY Meds: Medications Generic Name Dose Route Start Last Admin Trade Name Freq PRN Reason Stop Dose Admin Diphenhydramine HCl 25 mg 06/24/21 07:51 Diphenhydramine 50 Mg/Ml Sdv IVPUSH Q6H PRN Itching Diphenhydramine HCl 25 mg 06/24/21 07:51 Diphenhydramine 25 Mg Cap PO Q6H PRN Itching Hydromorphone HCl 1 mg 06/23/21 18:46 06/24/21 07:45 Hydromorphone 1 Mg/Ml Syringe IVPUSH 1 mg Q2H PRN Administration Abdominal Pain Hydromorphone HCl 15 mg 06/24/21 08:00 06/24/21 08:59 Hydromorphone/Normal Saline 15 Mg/30 Ml [employer]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 IV 15 mg ASDIRECTED KIMBERLY Administration Protocol Lactated Ringer's 1,000 mls @ 500 mls/hr 06/23/21 17:15 06/23/21 17:18 Ringers, Lactated IV 500 mls/hr ASDIRECTED KIMBERLY Administration Sodium Chloride 1,000 mls @ 999 mls/hr 06/23/21 19:00 06/24/21 03:28 Normal Saline IV 125 mls/hr ASDIRECTED KIMBERLY Administration Sodium Chloride 1,000 mls @ 125 mls/hr 06/23/21 20:00 Normal Saline IV ASDIRECTED KIMBERLY Naloxone HCl 0.04 mg 06/24/21 07:51 Naloxone 0.4 Mg/Ml Sdv IVPUSH Q3M PRN Respiratory Depression Ondansetron HCl 4 mg 06/23/21 23:48 06/24/21 00:06 Ondansetron 4 Mg/2 Ml Sdv IVPUSH 4 mg Q6H PRN Administration Nausea/Vomiting Ondansetron HCl 4 mg 06/24/21 07:51 06/24/21 08:03 Ondansetron 4 Mg/2 Ml Sdv IVPUSH 4 mg Q6H PRN Administration Nausea/Vomiting Sodium Chloride 10 ml 06/23/21 16:38 06/24/21 11:48 Sodium Chloride 0.9% 10 Ml Syringe FLUSH 10 ml ASDIRECTED PRN Administration Keep Vein Open Discontinued Medications Generic Name Dose Route Start Last Admin Trade Name Freq PRN Reason Stop Dose Admin Amlodipine Besylate 2.5 mg 06/23/21 19:45 06/23/21 19:54 Amlodipine 5 Mg Tab PO 06/23/21 19:46 2.5 mg ONETIME ONE Administration Amlodipine Besylate 2.5 mg 06/24/21 08:00 06/24/21 08:06 Amlodipine 5 Mg Tab PO 06/24/21 08:01 2.5 mg ONETIME ONE Administration Hydromorphone HCl 1 mg 06/23/21 16:46 06/23/21 16:57 Hydromorphone 1 Mg/Ml Syringe IVPUSH 06/23/21 16:47 1 mg ONETIME ONE Administration Hydromorphone HCl 1 mg 06/23/21 22:55 06/24/21 03:27 Hydromorphone 1 Mg/Ml Syringe IVPUSH 06/23/21 22:56 Not Given ONETIME ONE Sodium Chloride 100 mls @ 3 mls/sec 06/23/21 17:30 06/23/21 17:46 Normal Saline IV 3 mls/sec ASDIRECTED KIMBERLY Administration Lactated Ringer's 1,000 mls @ 250 mls/hr 06/24/21 07:57 06/24/21 10:45 Ringers, Lactated IV 06/24/21 11:56 250 mls/hr BOLUS ONE Administration Iopamidol 150 ml 06/23/21 17:30 06/23/21 17:46 Iopamidol 612 Mg/Ml 150 Ml Bottle IV 06/24/21 17:31 150 ml . DIRECTED PRN Administration RADIOLOGY EXAM Lisinopril 20 mg 06/23/21 20:30 06/23/21 21:18 Lisinopril 20 Mg Tab PO Not Given DAILY KMIBERLY Lisinopril Confirm 06/23/21 21:14 06/23/21 21:19 Lisinopril 10 Mg Tab Administered 06/23/21 21:15 Not Given Dose 20 mg .ROUTE .STK-MED ONE Lisinopril 20 mg 06/23/21 21:15 06/23/21 21:18 Lisinopril 10 Mg Tab PO 06/23/21 21:16 20 mg ONETIME ONE Administration Lisinopril 20 mg 06/24/21 08:00 06/24/21 08:05 Lisinopril 10 Mg Tab PO 06/24/21 08:01 20 mg ONETIME ONE Administration Sodium Chloride 10 ml 06/23/21 17:30 06/23/21 17:46 Sodium Chloride 0.9% 10 Ml Sdv FLUSH 06/23/21 17:31 10 ml ONETIME ONE Administration Departure - Departure Time of Disposition: 14:22 Sepsis Event Note (ED) - Focused Exam Vital Signs: Vital Signs Temp Pulse Resp BP BP Pulse Ox 06/24/21 12:20 98.9 F 67 16 134/76 97 06/24/21 08:06 135/85 06/24/21 08:05 135/85 06/24/21 05:33 98.0 F 62 16 144/95 H 96 - My Orders Last 24 Hours: My Active Orders 06/24/21 07:51 Naloxone [Narcan] 0.04 mg IVPUSH Q3M PRN Ondansetron [Zofran] 4 mg IVPUSH Q6H PRN diphenhydrAMINE [Benadryl] 25 mg IVPUSH Q6H PRN diphenhydrAMINE [Benadryl] 25 mg PO Q6H PRN 06/24/21 07:52 Communication Order [RC] Per Unit Routine UNBUNDLER Record [RC] Q4H Vital Signs [RC] PER UNIT ROUTINE Pulse Oximetry Continuous Monitoring [OM.PC] Routine 06/24/21 08:00 HYDROmorphone/Normal Saline [Dilaudid UNBUNDLER 15 MG in NS 30 ML] 15 mg IV ASDIRECTED - Assessment/Plan Last 24 Hours: My Active Orders 06/24/21 07:51 Naloxone [Narcan] 0.04 mg IVPUSH Q3M PRN Ondansetron [Zofran] 4 mg IVPUSH Q6H PRN diphenhydrAMINE [Benadryl] 25 mg IVPUSH Q6H PRN diphenhydrAMINE [Benadryl] 25 mg PO Q6H PRN 06/24/21 07:52 Communication Order [RC] Per Unit Routine UNBUNDLER Record [RC] Q4H Vital Signs [RC] PER UNIT ROUTINE Pulse Oximetry Continuous Monitoring [OM.PC] Routine 06/24/21 08:00 HYDROmorphone/Normal Saline [Dilaudid UNBUNDLER 15 MG in NS 30 ML] 15 mg IV ASDIRECTED Plan: Assessment Acuity = acute Site and laterality = pancreatitis Etiology = concern for retained ductal stone Manifestations = abdominal pain Location of injury = Home Lab values = WBC elevated 13.6 consistent with leukocytosis creatinine elevated 1.5 consistent with chronic renal failure stage G3 a lactic acid normal 0.8 bilirubin elevated 9.6 consistent hyperbilirubinemia AST of 200 ALT 422 consistent with elevated liver enzymes, lipase 10,941, LDH [address] scan describes pancreatitis Plan This gentleman was a signout from 2 prior providers in the emergency department unable to find placement [facility] did contact today at 1420 a bed was available kindly transferred via EMS ground he is on a Dilaudid UNBUNDLER for pain control This note was dictated using dragon voice recognition software please call with any questions on syntax or grammar.
[2021-06-23] MEDS: Sodium Chloride 0.9% 10 ML Syringe FLUSH PRN (16:59)
[2021-06-23] MEDS ORDERED: Lactated Ringers 1,000 ML IV SCH (17:15)
[2021-06-23] MEDS ORDERED: Sodium Chloride 0.9% 10 ML SDV FLUSH ONE (17:30)
[2021-06-23] MEDS ORDERED: Iopamidol 612 MG/ML 150 ML Bottle IV PRN (17:30)
[2021-06-23] MEDS ORDERED: Sodium Chloride 0.9% 100 ML IV SCH (17:30)
[2021-06-23] MEDS: Sodium Chloride 0.9% 1,000 ML IV SCH ×2 (18:50→19:51)
[2021-06-23] MEDS: HYDROmorphone 1 MG/ML Syringe IVPUSH PRN ×3 (18:57→22:56)
--- NOTE | 2021-06-23 19:40 | CRLCT ---
For Patients: As a result of the Century Cures Act, medical imaging exams and procedure reports are released immediately into your electronic medical record. You may view this report before your referring provider. If you have questions, please contact your health care provider. Indication: Epigastric pain Technique: Contrast-enhanced CT abdomen and pelvis Comparison: CT abdomen and pelvis 05/29/2021 Findings: The heart size is normal. Basilar atelectasis or subtle infiltrate. Fatty liver. Cholecystectomy biliary dilatation. Spleen adrenal glands unremarkable probable gastric sleeve procedure. Normal caliber abdominal aorta. Peripancreatic inflammatory change and fluid tracking along the anterior para renal space bilaterally no organized fluid collection. Normal enhancement of the pancreas. Portal vein, splenic vein patent. Symmetric enhancement of both kidneys right renal cyst. Too small to characterize low-density lesion left kidney. No suspicious bony lesions. Urinary bladder unremarkable prostate gland unremarkable. The bowel is unremarkable normal appendix. No suspicious bony lesions. Impression: 1. Peripancreatic inflammatory change. Normal enhancement of the pancreas findings most likely reflect interstitial edematous pancreatitis (IEP). 2. Fatty liver. Please note that all CT scans at this facility use dose modulation, iterative reconstruction, and/or weight-based dosing when appropriate to reduce radiation dose to as low as reasonably achievable. Dictated by Mounika Canales MD @ 06/23/2021 7:39:53 PM (Electronically Signed)
[2021-06-23] MEDS ORDERED: amLODIPine 5 MG Tab PO ONE (19:45)
[2021-06-23] MEDS ORDERED: Sodium Chloride 0.9% 1,000 ML IV SCH (20:00)
[2021-06-23] MEDS ORDERED: Lisinopril 20 MG Tab PO SCH (20:30)
[2021-06-23] MEDS ORDERED: Lisinopril 10 MG Tab ONE (21:14)
[2021-06-23] MEDS ORDERED: Lisinopril 10 MG Tab PO ONE (21:15)
[2021-06-23] MEDS ORDERED: Ondansetron 4 MG/2 ML SDV IVPUSH PRN (23:48)
[2021-06-24] MEDS: HYDROmorphone 1 MG/ML Syringe IVPUSH PRN ×4 (01:06→07:45)
[2021-06-24] MEDS: Sodium Chloride 0.9% 1,000 ML IV SCH (03:28)
[2021-06-24] MEDS ORDERED: diphenhydrAMINE 50 MG/ML SDV IVPUSH PRN (07:51)
[2021-06-24] MEDS ORDERED: Ondansetron 4 MG/2 ML SDV IVPUSH PRN (07:51)
[2021-06-24] MEDS ORDERED: diphenhydrAMINE 25 MG Cap PO PRN (07:51)
[2021-06-24] MEDS ORDERED: Naloxone 0.4 MG/ML SDV IVPUSH PRN (07:51)
[2021-06-24] MEDS ORDERED: Lactated Ringers 1,000 ML IV ONE (07:57)
[2021-06-24] MEDS ORDERED: Lisinopril 10 MG Tab PO ONE (08:00)
[2021-06-24] MEDS ORDERED: HYDROmorphone/Normal Saline 15 MG/30 ML PCA IV SCH (08:00)
[2021-06-24] MEDS ORDERED: amLODIPine 5 MG Tab PO ONE (08:00)
[2021-06-24] MEDS: Sodium Chloride 0.9% 10 ML Syringe FLUSH PRN (11:48)
[2021-06-24 14:37] VITALS: BP 146/92; PULSE 68
== END 2021-06-24 15:55 ==
LOC: JP.ED 15:43
DX: K85.90 Acute pancreatitis without necrosis or infection, unspecified (principal); R79.89 Other specified abnormal findings of blood chemistry; I10 Essential (primary) hypertension; E66.9 Obesity, unspecified; Z90.49 Acquired absence of other specified parts of digestive tract; Z98.84 Bariatric surgery status; Z20.822 Contact with and (suspected) exposure to COVID-19; Z79.82 Long term (current) use of aspirin; Z79.899 Other long term (current) drug therapy; Z68.42 Body mass index [BMI] 45.0-49.9, adult
CPT/HCPCS: 36415; 74177; 80053; 81001; 83605; 83615; 83690; 85027; 86140; 87635; 96374; 96375; 96376; 99285; A9270; J1170; J2405; J7030; J7120; Q9967; U0002